=== PATIENT | female | born 1980 | race Caucasian/White ===

== ENCOUNTER → 2018-01-21 13:31 | Outpatient (REF) | payer BC, SELFPAY | LOC: LAB 13:31 | PROVIDERS: Visit Provider Physician Assistant | DX: N39.0 Urinary tract infection, site not specified (principal) | CPT/HCPCS: 87086 ==

== ENCOUNTER → 2018-07-16 14:43 | Outpatient (CLI) | payer BC, SELFPAY ==
[2018-07-16 16:26] LABS: Amphetamine/Metha Screen,Urine Positive ng/mL (<1000); Barbiturates Screen,Urine Negative ng/mL (<200); Benzodiazepines Screen,Urine Negative ng/mL (<200); Cannabinoid Screen,Urine Negative ng/mL (<50); Cocaine Screen,Urine Negative ng/mL (<300); Methadone Screen,Urine Negative ng/mL (<300); Opiate Screen,Urine Negative ng/mL (<300); Phencyclidine Screen,Urine Negative ng/mL (<25)
== END ==
PROVIDERS: Visit Provider Physician Assistant
DX: F90.9 Attention-deficit hyperactivity disorder, unspecified type (principal)
CPT/HCPCS: 80305

== ENCOUNTER → 2019-09-30 14:44 | Outpatient (CLI) | payer BC, SELFPAY ==
--- NOTE | 2019-09-30 14:50 | XR_ITS ---
PROCEDURE: XR ELBOW RT MIN 3V CLINICAL INDICATION: right elbow pain COMPARISON: No exams were available for comparison FINDINGS: No fracture or dislocation. No lytic or blastic change. There is normal mineralization. The joint spaces are well-preserved. No significant degenerative/arthritic changes. No erosive changes evident. Other findings:None. IMPRESSION: No acute findings. Dictated by: Tim Darby MD 09/30/2019 16:43 Electronically signed by Tim Darby MD in [place] 09/30/2019 16:43
== END ==
LOC: RAD 14:47
PROVIDERS: PCP Physician Assistant; Visit Provider Physician Assistant
DX: M25.521 Pain in right elbow (principal)
CPT/HCPCS: 73080

== ENCOUNTER → 2020-01-01 11:09 | Outpatient (CLI) | payer BC, SELFPAY ==
[2020-01-01 11:17] LABS: Adenovirus F 40/41, stool Not Detected (NotDetected); Astrovirus Not Detected (NotDetected); Campylobacter Not Detected (NotDetected); Clostridium Difficile A/B, PCR Not Detected (NotDetected); Cryptosporidium Not Detected (NotDetected); Cyclospora Cayetanesis Not Detected (NotDetected); Entamoeba histolytica Not Detected (NotDetected); Enteroaggregative E coli Not Detected (NotDetected); Enteropathogenic E coli Not Detected (NotDetected); Enterotoxigenic E coli Not Detected (NotDetected); Giardia lamblia Not Detected (NotDetected); Norovirus Not Detected (NotDetected); Plesimonas Shigalloides, PCR Not Detected (NotDetected); Rotavirus A Not Detected (NotDetected); Salmonella, PCR Not Detected (NotDetected); Sapovirus Not Detected (NotDetected); Shigella Enterovasive E coli Not Detected (NotDetected); Vibrio Cholerae Not Detected (NotDetected); Vibrio, PCR Not Detected (NotDetected); Yersinia Entercolitica, PCR Not Detected (NotDetected)
[2020-01-01 20:07] LABS: Shiga-like toxin E coli Detected (NotDetected)
== END ==
PROVIDERS: Visit Provider Physician Assistant
DX: R19.7 Diarrhea, unspecified (principal); B96.21 Shiga toxin-producing Escherichia coli [E. coli] [STEC] O157 as the cause of diseases classified elsewhere
CPT/HCPCS: 87507

== ENCOUNTER → 2020-04-04 17:46 | Outpatient (CLI) | payer BC, SELFPAY ==
[2020-04-04 18:45] LABS: Basophils # 0.2 K/mm3 (0-0.2); Basophils % 1.4 % (0.1-2.0); Eosinophils # 0.2 K/mm3 (0.0-0.4); Eosinophils % 1.2 % (0.1-12.0); Hematocrit 47.2 % (37.0-47.0); Hemoglobin 15.8 g/dL (12.2-16.2); Lymphocytes # 4.2 K/mm3 (0.7-4.5); Lymphocytes % 35.2 % (10-50); Mean Corpuscular HGB Conc 33.4 g/dL (31.8-35.4); Mean Corpuscular Hemoglobin 30.9 pg (27.0-31.2); Mean Corpuscular Volume 92.4 fl (81-99); Mean Platelet Volume 8.3 fl (7.4-10.4); Monocytes # 0.7 K/mm3 (0.1-1.0); Monocytes % 5.5 % (1.7-9.3); Neutrophils # 6.8 K/mm3 (1.8-7.8); Neutrophils % 56.7 % (37.0-80.0); Platelet Count 500 K/mm3 (142-424); Red Blood Count 5.11 M/mm3 (4.20-5.40); Red Cell Distribution Width 13.4 % (11.5-17.5)
[2020-04-04 18:47] LABS: Alanine Aminotransferase 19 U/L (12-78); Albumin Level 4.6 g/dl (3.5-5.0); Albumin/Globulin Ratio 1.6 (1.1-1.8); Alkaline Phosphatase 81 U/L (38-126); Anion Gap 13.4 mEq/L (5-15); Aspartate Amino Transferase 30 U/L (14-36); Bilirubin,Total 0.4 mg/dl (0.2-1.3); Blood Urea Nitrogen 7 mg/dl (7-17); Calcium 9.7 mg/dl (8.4-10.2); Carbon Dioxide 24 mmol/L (22.0-30.0); Chloride 103 mmol/L (98-107); Chol/HDL Ratio 3.2 (1-3.5); Cholesterol 199 mg/dl (140-200); Estimated Glomerular Filt Rate 94 ml/min (>60); GFR (African American) 114 ML/MIN (>60); Globulin 2.9 g/dL (1.3-3.2); Glucose 85 mg/dl (74-100); HDL Cholesterol 62 mg/dl (40-60); Potassium 4.4 mmoL/L (3.5-5.1); Sodium 136 mmol/L (136-145); Total Protein,Serum 7.5 g/dl (6.3-8.2); Triglycerides 90 mg/dl (30-150); VLDL Cholesterol 18 mg/dL (0-40)
[2020-04-04 18:58] LABS: Direct LDL Cholesterol 124.42 mg/dL (100-129)
[2020-04-04 19:03] LABS: Free T4 (Free Thyroxine) 1.53 ng/dl (0.78-2.19)
[2020-04-04 19:05] LABS: 25-OH Vitamin D, Total 37.8 ng/mL (30-100)
[2020-04-04 19:17] LABS: Thyroid Stimulating Hormone 3.09 uIU/mL (0.465-4.68)
== END ==
LOC: LAB 17:46 → LAB.DROPOF 04-05 08:45
PROVIDERS: Visit Provider Physician Assistant
DX: Z00.00 Encounter for general adult medical examination without abnormal findings (principal); F90.9 Attention-deficit hyperactivity disorder, unspecified type
CPT/HCPCS: 80053; 80061; 82306; 84439; 84443; 85025

== ENCOUNTER → 2020-09-09 14:22 | Outpatient (CLI) | payer BC, SELFPAY | LOC: RT 14:24 | PROVIDERS: PCP Physician Assistant; Visit Provider Physician Assistant | DX: R06.00 Dyspnea, unspecified (principal); R60.9 Edema, unspecified | CPT/HCPCS: 93306 ==

== ENCOUNTER → 2021-08-22 14:53 | Outpatient (CLI) | payer BC, SELFPAY ==
[2021-08-22 18:52] LABS: Amphetamine/Metha Screen,Urine Positive ng/ml (<1000)
[2021-08-22 18:53] LABS: Barbiturates Screen,Urine Negative ng/ml (<200); Benzodiazepines Screen,Urine Negative ng/ml (<200)
[2021-08-22 18:54] LABS: Cannabinoid Screen,Urine Positive ng/ml (<50)
[2021-08-22 18:55] LABS: Cocaine Screen,Urine Negative ng/ml (<300); Methadone Screen,Urine Negative ng/ml (<300)
[2021-08-22 18:56] LABS: Opiate Screen,Urine Negative ng/ml (<300)
[2021-08-22 18:57] LABS: Phencyclidine Screen,Urine Negative ng/ml (<25)
== END ==
PROVIDERS: PCP Physician Assistant; Visit Provider Physician Assistant
DX: Z79.899 Other long term (current) drug therapy (principal)
CPT/HCPCS: 80305

== ENCOUNTER → 2021-11-29 10:46 | Outpatient (CLI) | payer BC, SELFPAY ==
--- NOTE | 2021-11-29 11:10 | US_ITS ---
FINAL REPORT CLINICAL HISTORY: menorrhagia, abnormal uterine bleeding FINDINGS: Transvaginal sonographic images of the pelvis were obtained. The uterus measures 7.5 x 4.4 x 5.0 cm. The endometrium measures 14 mm, within the upper limits of normal in size. There is a small amount of pelvic free fluid. The right ovary measures 3.1 x 2.2 x 1.9 cm. The left ovary measures 4.0 x 1.4 x 2.3 cm. There are small cysts or follicles in both ovaries. IMPRESSION: Borderline thickened endometrium. Small amount of free fluid, may be physiologic or reactive. Reviewed, Interpreted and Dictated by Andrew Connolly III, MD Transcribed by Sahra Graff Authenticated and [facility]
== END ==
PROVIDERS: PCP Physician Assistant; Visit Provider Obstetrics & Gynecology
DX: R09.89 Other specified symptoms and signs involving the circulatory and respiratory systems (principal); N92.0 Excessive and frequent menstruation with regular cycle; N93.9 Abnormal uterine and vaginal bleeding, unspecified
CPT/HCPCS: 36415; 76830; 84443

== ENCOUNTER → 2022-01-13 12:15 | Outpatient (CLI) | payer BC, SELFPAY ==
[2022-01-13 12:45] LABS: Basophils # 0.2 K/mm3 (0-0.2); Basophils % 1.4 % (0.1-2.0); Eosinophils # 0.2 K/mm3 (0.0-0.4); Eosinophils % 1.3 % (0.1-12.0); Hematocrit 41.4 % (37.0-47.0); Hemoglobin 13.7 g/dL (12.2-16.2); Lymphocytes # 4.8 K/mm3 (0.7-4.5); Lymphocytes % 42.4 % (10-50); Mean Corpuscular HGB Conc 33.1 g/dL (31.8-35.4); Mean Corpuscular Hemoglobin 30.2 pg (27.0-31.2); Mean Corpuscular Volume 91.1 fl (81-99); Monocytes # 0.5 K/mm3 (0.1-1.0); Monocytes % 4.5 % (1.7-9.3); Neutrophils # 5.7 K/mm3 (1.8-7.8); Neutrophils % 50.3 % (37.0-80.0); Platelet Count 471 K/mm3 (142-424); Red Blood Count 4.54 M/mm3 (4.20-5.40); Red Cell Distribution Width 13.4 % (11.5-17.5); White Blood Count 11.4 K/mm3 (4.8-10.8)
[2022-01-13 12:58] LABS: Chloride 103 mmol/L (98-107); Potassium 3.5 mmoL/L (3.5-5.1); Sodium 139 mmol/L (136-145)
[2022-01-13 13:01] LABS: Alanine Aminotransferase 14 U/L (12-78); Albumin Level 4.2 g/dl (3.5-5.0); Albumin/Globulin Ratio 1.7 (1.1-1.8); Alkaline Phosphatase 74 U/L (38-126); Anion Gap 12.5 mEq/L (5-15); Aspartate Amino Transferase 25 U/L (14-36); Blood Urea Nitrogen 6 mg/dl (7-17); Calcium 8.7 mg/dl (8.4-10.2); Carbon Dioxide 27 mmol/L (22.0-30.0); Estimated Glomerular Filt Rate 111 ml/min (>60); GFR (African American) 135 ML/MIN (>60); Globulin 2.5 g/dL (1.3-3.2); Glucose 82 mg/dl (74-100); Total Protein,Serum 6.7 g/dl (6.3-8.2)
[2022-01-13 13:02] LABS: Bilirubin,Total 0.1 mg/dl (0.2-1.3)
[2022-01-13 13:23] LABS: HCG,Quantitative < 2 mIU/ml (0-5.42)
== END ==
PROVIDERS: PCP Physician Assistant; Visit Provider Obstetrics & Gynecology
DX: N93.9 Abnormal uterine and vaginal bleeding, unspecified (principal)
CPT/HCPCS: 36415; 80053; 84702; 85025

== ENCOUNTER 2022-01-15 06:00 | Day surgery (SDC) | payer BC, SELFPAY ==
[2022-01-15 06:27] VITALS: BP 128/72; PULSE 75; RESP 18; TEMP 36.2; O2SAT 100; BMI 31.7
--- NOTE | 2022-01-15 07:07 | P.PN_ITS ---
PFSH PFS Medical History Abnormal uterine bleeding Anxiety Attention Deficit Hyperactivity Disorder (ADHD) Function kidney decreased Menorrhagia Tobacco use Surgical History History of kidney surgery Family History Other No significant family history Social History Smoking Status: Current every day smoker tobacco type: cigarettes packs per day: 1 second hand exposure: Yes alcohol intake: never substance use type: denies use current occupational status: employed Travel in the last 8 weeks: Inside the [place] [facility] Anesthesia Checklist Patient Identification Patient Identification: Arm Band and Verbal (Name & ) Structural Data Admitted From: Home Planned Operative Procedure/s: Hyst/D & C/ Novasure Consent for Planned Operative Procedure(s) Verified: Yes NPO Status Verified Time NPO: 00:00 Chart Verification Results Verified: HCG Additional verifications Anesthesia Reactions: No Hx Blood Transfusions: No Blood Transfusion Reaction: No Airway Assessment C-Spine Mobility Assessed: Yes TMJ Mobility Assessed: Yes Dentition: Good Dentition Neurological Assessment Level of Consciousness: Awake Hx Seizures: Yes (Childhood) Numbness or tingling in extremities: No Anesthesia Plan Anesthesia Risk discussed: Yes Anesthesia Plan: Verified ASA Class: II Anesthesia Type: MAC
[2022-01-15 08:04] VITALS: BP 122/72; PULSE 88; RESP 17; TEMP 36.6; O2SAT 97
--- NOTE | 2022-01-15 08:11 | P.OP_ITS ---
Date of procedure: 01/15/22 Pre-op Diagnosis:: 1. Menorrhagia 2. Abnormal uterine bleeding Post-op Diagnosis:: 1. Menorrhagia 2. Abnormal uterine bleeding Procedure performed:: 1. Hysteroscopy, Dilation and curettage 2. Novasure endometrial ablation Surgeon:: Eugenia Long DO Safe And Vault Installer(s):: N/a BRICK SORTER:: Leonides Howard Anesthesia: MAC Estimated blood loss (mL): 5 Clinical Note:: Ms Kay Rodrigues is a 41 yo P2002 who presents for scheduled surgery. She complains of abnormal uterine bleeding. FDLMP 01/10/22. Periods are regular, monthly. Flow lasts about 7 days. She states the first 3-4 days are very heavy with clots. History of x 2. Her has had a vasectomy. She is a current tobacco user. She has tried Depo Provera, combined OCPs and Mirena IUD in the past. She did not like the IUD and admits it did not change her bleeding profile. TSH 2.20 on 11/29/21. Pelvic ultrasound 11/29/21 was within normal limits. Operative findings:: On bimanual exam, uterus was midposition and normal size and shape. No adnexal masses palpated. Cervix appeared grossly normal. Moderate amount of fluffy endometrial tissue present. No masses or polyps noted. Bilateral tubal ostia easily visualized. Operative note:: Risks, benefits and alternatives were discussed with the patient. Risks include but are not limited to bleeding, infection, uterine perforation and VTE. Patient voiced understanding and agreed to proceed. She was wheeled back to the operating room and placed under general anesthesia without difficulty. She was placed in dorsal lithotomy position and prepped and draped in the normal sterile fashion. A bimanual exam was performed. A weighted Auvard was placed in the vaginal vault. Single tooth tenaculum was placed on anterior lip of the cervix. Uterus sounded to 9. Sequential Jonathan dilators were used to dilate the cervical os. Hysteroscope was tested inserted through the cervix without difficulty. Endometrial cavity was evaluated. See findings above. Pictures were taken. Hysteroscope was removed. Medium size sharp curette was inserted through the cervix into the uterine cavity. The endometrial cavity was curetted with a systemic [id number] movement of the curette so that all possible endometrium was sampled. Endometrial curettings will be sent to pathology for review. Novasure sure sound was used to obtain uterine length. Uterus measured 4.5 cm in length and 4.5 cm in cavity width. Novasure deviced was inserted and ablation was performed per protocol at a power of 111 w for 120 seconds. Novasure device was removed. Hysteroscope was reinserted and cavity revealed adequate burn and no uterine perforation. Hysteroscope was removed. Instruments were removed from the vagina. Tenaculum site was noted to be hemostatic. Straight catheter was used to drain the bladder. Patient was awaken from anesthesia without difficulty. She was transported to recovery room in stable condition. Patient will be discharged home when awake and ambulating. She was given postop instructions as well as instructions to follow-up in the office in 2 weeks at which time pathology will be reviewed. Condition: stable Disposition: same day Specimens:: 1. Endometrial curettings Complications:: None
[2022-01-15 08:14] VITALS: BP 125/75; PULSE 87; RESP 18; O2SAT 97
[2022-01-15 08:24] VITALS: BP 121/78; PULSE 84; RESP 18; O2SAT 98
[2022-01-15 08:34] VITALS: BP 143/93; PULSE 74; RESP 18; O2SAT 95
== END 2022-01-15 08:37 | disposition home or self-care (01) ==
PROVIDERS: PCP Physician Assistant; Visit Provider Obstetrics & Gynecology
PROC: (CPT 58563; principal; 2022-01-15 07:30)
DX: N92.0 Excessive and frequent menstruation with regular cycle (principal); N93.9 Abnormal uterine and vaginal bleeding, unspecified; Z72.0 Tobacco use; Z79.899 Other long term (current) drug therapy
CPT/HCPCS: 58563; 88305

== ENCOUNTER 2022-05-13 16:39 | Emergency (ER) | payer BC, SELFPAY ==
[2022-05-13 16:40] VITALS: BP 118/73; PULSE 110; RESP 17; TEMP 36.4; O2SAT 100; BMI 32.4
--- NOTE | 2022-05-13 16:55 | EXP.UTC ---
Discharge Plan Disposition Patient Disposition: Home, Self-Care Condition: Good Prescriptions Prescriptions: New ondansetron 4 mg Tablet,Disintegrating 4 mg PO Q8H PRN (Reason: Nausea) Qty: 12 0RF No Action cyclobenzaprine 10 mg tablet 10 mg PO Q8H PRN (Reason: muscle spasm) Qty: 90 5RF fluticasone propionate [Flonase Allergy Relief] 50 mcg/actuation spray,suspension 1 spray intranasal BID Qty: 16 3RF Rx Instructions: administer into each nostril hydrochlorothiazide 12.5 mg tablet 12.5 mg PO DAILY Qty: 30 2RF Mydayis 50 mg capsule, ER triphasic 24 hr 50 mg PO DAILY Qty: 30 0RF memantine [Namenda XR] 7 mg capsule,sprinkle,ER 24hr 7 mg PO DAILY Referrals Follow up/Referrals: Lamar Moffett PA [Primary Care Provider] - See instructions Activity Restrictions/Add. Instructions Additional Instructions/Restrictions: Drink plenty of fluids. Take tylenol or ibuprofen for pain or fever. Take the medications as directed. Follow up with your regular doctor. GO TO THE ER FOR ANY WORSENING SYMPTOMS Clinical Impressions Clinical Impression: Gastroenteritis, Acute viral syndrome Stand Alone Forms Stand Alone Forms: Work/School Release Instructions Patient Instructions: DI for Viral Gastroenteritis -- Adult Discharge ED Provider: Eliazar Kelly [facility] General Stated complaint: stomach pain, chills, vomiting, weakness Mode of Arrival: Ambulatory Limitations: No Limitations Time Seen by Provider: 05/13/22 16:55 Description of Symptoms (Recalled from Triage Doc. by RN): PT C/O CHILLS, VOMITING, BODYACHES AND FATIGUE. History of Present Illness Provider Complaint: She states that for the past 1 day she had nausea and vomiting. She has not had diarrhea, but she has a history of constipation. She has had chills, but no documented fever. Related Data Home Medications Medication Instructions Recorded Confirmed memantine 7 mg capsule 7 mg PO DAILY . 01/15/22 05/07/22 sprinkle,extended release 24hr (Namenda XR) Previous Rx's Medication Instructions Recorded cyclobenzaprine 10 mg tablet 10 mg PO Q8H PRN muscle spasm #90 01/04/22 tabs dextroamphetamine-amphetamine ER 50 mg PO DAILY . #30 ea 05/07/22 50 mg capsule,3 bead,ext release 24hr (Mydayis) fluticasone propionate 50 1 spray intranasal BID allergies 05/07/22 mcg/actuation nasal #16 grams spray,suspension (Flonase Allergy Relief) hydrochlorothiazide 12.5 mg tablet 12.5 mg PO DAILY #30 tabs 05/07/22 ondansetron 4 mg disintegrating 4 mg PO Q8H PRN Nausea #12 tabs 05/13/22 tablet Allergies Allergy/AdvReac Type Severity Reaction Status Date / Time No Known Allergies Allergy Verified 05/13/22 17:21 [facility] Disclaimer: The information contained in this section may have been updated after the patient was seen, as this information can be updated by other users. Medical History Abnormal uterine bleeding Anxiety Attention Deficit Hyperactivity Disorder (ADHD) Function kidney decreased Menorrhagia Tobacco use Surgical History History of endometrial ablation History of hysteroscopy History of kidney surgery S/P dilation and curettage Family History Other No significant family history Social History Smoking Status: Current every day smoker tobacco type: cigarettes packs per day: 1 second hand exposure: Yes alcohol intake: never substance use type: denies use current occupational status: employed Travel in the last 8 weeks: Inside the [place] ROS Obtained: Yes All systems reviewed & no additional complaints except as documented Constitutional Constitutional: Denies chills and Denies fever(s) Eyes Eyes: Denies eye discharge ENT Ears, Nose, Mouth, and Throat: Denies dizziness, 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
[2022-05-13 17:10] VITALS: BP 121/76; PULSE 102; RESP 20; TEMP 37.1; O2SAT 99; BMI 32.4
[2022-05-13 17:22] LABS: UTC Strep Screen (Rapid) Negative (Negative)
[2022-05-13 17:23] LABS: UTC Influenza A Antigen Negative (Negative); UTC Influenza B Antigen Negative (Negative)
[2022-05-13 18:12] VITALS: BP 121/76; PULSE 102; RESP 20; TEMP 37.1; O2SAT 99
== END 2022-05-13 18:11 | disposition home or self-care (01) ==
LOC: ER 16:46 → UTC 16:46
PROVIDERS: Emergency Provider Nurse Practitioner Family; PCP Physician Assistant
DX: K52.9 Noninfective gastroenteritis and colitis, unspecified (principal); B34.9 Viral infection, unspecified
CPT/HCPCS: 87804; 87880; 99212; 99213; G0463

== ENCOUNTER → 2022-06-28 10:30 | Outpatient (CLI) | payer BC, SELFPAY | PROVIDERS: PCP Physician Assistant; Visit Provider Physician Assistant | DX: R35.0 Frequency of micturition (principal); B96.29 Other Escherichia coli [E. coli] as the cause of diseases classified elsewhere | CPT/HCPCS: 87086; 87088; 87186 ==

== ENCOUNTER 2023-04-09 11:34 | Outpatient (CLI) | payer BC, SELFPAY ==
[2023-04-09 13:35] LABS: Amphetamine/Metha Screen,Urine Positive ng/ml (<1000); Barbiturates Screen,Urine Negative ng/ml (<200); Benzodiazepines Screen,Urine Negative ng/ml (<200); Cannabinoid Screen,Urine Negative ng/ml (<50); Cocaine Screen,Urine Negative ng/ml (<300); Methadone Screen,Urine Negative ng/ml (<300); Opiate Screen,Urine Negative ng/ml (<300); Phencyclidine Screen,Urine Negative ng/ml (<25)
== END 2023-04-09 23:59 ==
LOC: LAB.DROPOF 11:35
PROVIDERS: PCP Physician Assistant; Visit Provider Physician Assistant
DX: F90.9 Attention-deficit hyperactivity disorder, unspecified type (principal)
CPT/HCPCS: 80307

== ENCOUNTER 2023-06-03 09:24 | Outpatient (CLI) | payer OTHER, SELFPAY ==
[2023-06-03 10:19] LABS: Basophils # 0.2 K/mm3 (0-0.2); Basophils % 1.7 % (0.1-2.0); Eosinophils # 0.2 K/mm3 (0.0-0.4); Eosinophils % 1.6 % (0.1-12.0); Hematocrit 44.5 % (37.0-47.0); Hemoglobin 14.8 g/dL (12.2-16.2); Lymphocytes % 41.3 % (10-50); Mean Corpuscular HGB Conc 33.4 g/dL (31.8-35.4); Mean Corpuscular Hemoglobin 31.3 pg (27.0-31.2); Mean Corpuscular Volume 93.7 fl (81-99); Mean Platelet Volume 7.5 fl (7.4-10.4); Monocytes # 0.6 K/mm3 (0.1-1.0); Monocytes % 5.7 % (1.7-9.3); Neutrophils # 4.8 K/mm3 (1.8-7.8); Neutrophils % 49.7 % (37.0-80.0); Platelet Count 407 K/mm3 (142-424); Red Blood Count 4.75 M/mm3 (4.20-5.40); Red Cell Distribution Width 13.2 % (11.5-17.5); White Blood Count 9.7 K/mm3 (4.8-10.8)
[2023-06-03 10:33] LABS: Alanine Aminotransferase 17 U/L (12-78); Albumin Level 4.2 g/dl (3.5-5.0); Albumin/Globulin Ratio 1.9 (1.1-1.8); Alkaline Phosphatase 70 U/L (38-126); Anion Gap 8.7 mEq/L (5-15); Aspartate Amino Transferase 25 U/L (14-36); Bilirubin,Total 0.3 mg/dl (0.2-1.3); Blood Urea Nitrogen 9 mg/dl (7-17); Carbon Dioxide 27 mmol/L (22.0-30.0); Chloride 108 mmol/L (98-107); Chol/HDL Ratio 3.1 (1-3.5); Cholesterol 148 mg/dl (140-200); Estimated Glomerular Filt Rate 93 ml/min (>60); GFR (African American) 112 ML/MIN (>60); Globulin 2.2 g/dL (1.3-3.2); Glucose 87 mg/dl (74-100); HDL Cholesterol 47 mg/dl (40-60); Potassium 3.7 mmoL/L (3.5-5.1); Sodium 140 mmol/L (136-145); Total Protein,Serum 6.4 g/dl (6.3-8.2); Triglycerides 117 mg/dl (30-150); VLDL Cholesterol 23 mg/dL (0-40)
[2023-06-03 10:43] LABS: Direct LDL Cholesterol 77.11 mg/dL (100-129)
[2023-06-03 10:44] LABS: Iron 70 ug/dL (37-170)
[2023-06-03 10:48] LABS: 25-OH Vitamin D, Total 48.7 ng/mL (30-100)
[2023-06-03 11:01] LABS: Total Iron Binding Capacity 357 ug/dL (265-497)
[2023-06-03 11:03] LABS: Thyroid Stimulating Hormone 2.67 uIU/mL (0.465-4.68)
[2023-06-03 11:21] LABS: Ferritin 43.8 ng/ml (6.24-137)
== END 2023-06-03 23:59 ==
LOC: LAB 09:27
PROVIDERS: PCP Physician Assistant; Visit Provider Physician Assistant
DX: R51.9 Headache, unspecified (principal); F90.0 Attention-deficit hyperactivity disorder, predominantly inattentive type; E66.9 Obesity, unspecified; Z68.29 Body mass index [BMI] 29.0-29.9, adult; F17.210 Nicotine dependence, cigarettes, uncomplicated; Z79.899 Other long term (current) drug therapy
CPT/HCPCS: 36415; 80053; 80061; 82306; 82728; 83540; 83550; 84443; 85025

== ENCOUNTER 2024-12-27 17:07 | Emergency (ER) | payer BC, SELFPAY ==
[2024-12-27] VITALS (12 sets, daily range): BP systolic 116–149; BP diastolic 74–94; PULSE 71–97; RESP 14–24; TEMP 36.9–37.2; O2SAT 96–100; BMI 33.5
--- NOTE | 2024-12-27 17:18 | ECG_ITS ---
APPROVED REPORT Exam: Resting ECG HR:80 bpm ECG Measurements Heart Rate 80 AXES UT 153 P 75 QRSd 94 QRS 80 QT 387 T 78 QTc 423 Conclusion SINUS RHYTHM WITH OCCASIONAL VENTRICULAR PREMATURE COMPLEXES BORDERLINE ECG UNCONFIRMED REPORT Electronically signed by : ANGIE PUCKETT, 12/28/2024 23:03:02
--- NOTE | 2024-12-27 17:18 | CT_ITS ---
PROCEDURE INFORMATION: Exam: CT Head Without Contrast Exam date and time: 12/27/2024 7:12 PM Age: 44 years old Clinical indication: Other: Optic nerve edema, headache, tingling feet TECHNIQUE: Imaging protocol: Computed tomography of the head without contrast. Radiation optimization: All CT scans at this facility use at least one of these dose optimization techniques: automated exposure control; mA and/or kV adjustment per patient size (includes targeted exams where dose is matched to clinical indication); or iterative reconstruction. COMPARISON: No relevant prior studies available. FINDINGS: Brain: No extra-axial fluid collections, midline shift, brain herniation, intracranial hemorrhage, or mass effect. Cerebral ventricles: The ventricular system is normal in size and distribution. Paranasal sinuses: Paranasal sinuses are clear. Mastoid air cells: The mastoid sinuses are clear. Orbital cavities: Punctate calcifications in the orbits at the level of the optic nerve insertion, nonspecific. Orbits are otherwise unremarkable. Bones: No acute skeletal abnormality or aggressive osseous lesion. Soft tissues: No acute soft tissue findings. IMPRESSION: 1. No acute intracranial pathology. 2. Punctate calcifications in the orbits at the level of the optic nerve insertion, nonspecific.
--- OUTSIDE RECORDS SUMMARY | 2024-12-27 17:21 | XMS_ITS | Patient Health Record ---
Author Organization [facility] Address [address] [place] [address] Care Team Providers Care Drapery And Upholstery Measurer Name Role Phone Anjelica Nash Unavailable [phone] Reason For Referral No Information Problems Problem Type SNOMED Code ICD Code Onset Dates Problem Status W/U Status Risk Notes Problem Abnormal uterine bleeding (86708628188 100) Abnormal bleeding in menstrual cycle (N93.9) 9 Active confirmed Vaginal spotting Plan Of Treatment No Information Medical (General) History Medical History History ICD Code Anxiety Fibercystic breasts LEXAPRO 10 MG ORAL TABLET, ORAL MYDAYIS 25 MG ORAL CAPSULE EXTENDED RELE ASE 24 HOUR, ORAL Surgical History Surgery Date(Month/Year) Kidney
--- OUTSIDE RECORDS SUMMARY | 2024-12-27 17:21 | XMS_ITS | Clinical Summary ---
Author Organization [facility] Address [address] [place] [address] Care Team Providers Care Building And Construction Manager Name Role Phone Lamar Moffett Primary Care Provider [phone] Allergies No known active allergies Medications Amphet-Dextroamphe t 3-Bead ER (MYDAYIS) 25 MG capsule sustained-release 24 hr Take 1 capsule by mouth Daily. Active HYDROcodone-acetam inophen (NORCO) 5-325 MG per tabletIndications: Acute abdominal pain,Colitis Take 1-2 tablets by mouth Every 6 (Six) Hours As Needed for Severe Pain . 12 tablet 12/28/19 20 Active ondansetron ODT (ZOFRAN-ODT) [address] 1 tablet on the tongue Every 6 (Six) Hours As Needed for Nausea or Vomiting. 12 tablet 12/28/19 20 Active ciprofloxacin (CIPRO) 500 MG tablet Take 1 tablet by mouth Every 12 (Twelve) Hours. 20 tablet 12/28/19 20 Active metroNIDAZOLE (FLAGYL) 500 MG tablet Take 1 tablet by mouth 3 (Three) Times a Day. 30 tablet 12/28/19 20 Active escitalopram (LEXAPRO) 10 MG tablet Take 1 tablet by mouth Daily. 12/22/19 20 Active cyclobenzaprine (FLEXERIL) 10 MG tablet Take 10 mg by mouth 3 (Three) Times a Day As Needed. for muscle spams 02/03/20 20 Active loratadine (CLARITIN) 10 MG tablet Take 1 tablet by mouth Daily. 11/24/19 20 Active colestipol (COLESTID) 1 g tablet Take 2 tablets by mouth Daily. Do not take within 2 hours of other medications 60 tablet 5 02/11/20 20 Active dvrlrx-gjcxjhmqb-i agnesium sulfates (Suprep Bowel Prep Kit) 17.5-3.13-1.6 GM/177ML solution oral solution Take 2 bottles by mouth Take As Directed. Do Not Eat The Day Before Your Procedure. Call [phone] for questions. 354 mL 03/02/20 20 Active Active Problems No known active problems Social History Tobacco Use Types Packs/Day Years Used Date Smoking Tobacco: Every Day Cigarettes Smokeless Tobacco: Never Tobacco Cessation:Ready to Q uit: No; Counseling Given: No Alcohol Use Standard Drinks/Week Comments No 0 (1 standard drink = 0.6 oz pur e alcohol) AUDIT-C Answer Date Recorded Frequency of Alcohol Consumption Never 08/10/2018 Average Number of Drinks Not on file Frequency of Binge Drinking Not on file 07/30 Abuse Screen Answer Date Recorded Unsafe at Home or Work/School Not on file Feels Threatened by Someone? Not on file 03/2023 Does Anyone Keep You from Co ntacting Others or Doint Things Outside the Home? Not on file 01/10/2023 Physical Sign of Abuse Present Not on file 1 Housing Stability Answer Date Recorded Current Living Arrangements Not on file 12/30 Potentially Unsafe Housing Conditions Not on ginette e 01/10/2023 Family and Community Support Answer Damián e Recorded Help with Day-to-Day Activities Not on file 01/10/2023 Lonely or Isolated Not on file 01/10/2023 Employment Answer Date Recorded Do you want help finding or keeping work or a daniele b? Not on file 01/10/2023 Disabilities Answer Date Recorded Concentrating, Remembering, or Making Decisions Difficulty Not on file 01/10/2023 Doing Errands Independently Difficulty Not on fi le 01/10/2023 Education Answer Date Recorded Help with school or training? Not on file Preferred Language Not on file 01/10/2023 Comments No Sex and Gender Information Value Date Recorded Sex Assigned at Not on file Legal Sex Female 8:42 PM EDT Gender Identity Not on file Sexual Orientation Not on file Last Filed Vital Signs Vital Sign Reading Time Taken Comments Blood Pressure 146/98 02/11/2020 10:27 AM EST Pulse 105 02/11/2020 10:27 AM EST Temperature 36.3 C (97.3 F) 02/11/2020 10:27 AM EST Respiratory Rate 16 12/28/2019 7:29 AM EDT Oxygen Saturation 95% 12/28/2019 12:30 PM EDT Inhaled Oxygen Concentration - - Weight 83.2 kg (183 lb 6.4 oz) 02/11/2020 10:27 AM EST Height 162.6 cm (5' 4.02 ) 02/11/2020 10:[address] Body Mass Index 31.46 02/11/2020 10:27 AM EST Plan of Treatment Health Maintenance Due Date Last Done Comments Annual Gynecologic Pelvic an d Breast Exam 1980 ANNUAL PHYSICAL 08/12/2018 HEPATITIS C SCREENING 08/12/2018 MAMMOGRAM 2022 INFLUENZA VACCINE 10/30/2024 01/13/2018 TDAP/TD VACCINES (2 - Td or Tdap) 01/03/2027 017 Pneumococcal Vaccine 0-49 Aged Out No longer eligible based on patient's age to complete this topic Insurance Member Subscriber Plan / Payer (Ef fective 2018-Present) Name:Kay Harp Relation to Subscriber:Spouse Name:NITHIN HARP Date of :1982 Address: [address] [place] [address] Payer ID:[id number] (NAIC) Type:Not on file Address: [address] [place] [id number] Care Teams Building And Construction Manager Relationship Specialty Start Date End Date Lamar Moffett PA PCP - General Physician Anode Worker 08/10/18
--- OUTSIDE RECORDS SUMMARY | 2024-12-27 17:21 | XMS_ITS | Data Portability ---
Author Organization [facility] ALEISHA Quach PEN ARGYL CLOSED Address [address] [facility] [address] [place] [address] Care Team Providers Care Rubbing Bed Operator Name Role Phone OLIVIA MADSEN Primary Care Provider Assessment No assessment recorded. Plan of Treatment Reminders Order Date Submit Date Provider Last Modified By Organization Details Last Modified Time Details Appointments None recorded. Lab urinalysis panel, auto 2022 023 [facility] Urology [facility], [address] [place] [address], [place], [address], 3 15:16:10 urinalysis panel, auto 2021 022 [facility], [address] [place] [address], [place], [address], 2 18:46:38 urinalysis microscopic panel, automated 2020 021 [facility], [address] [place] [address], [place], [address], 1 14:20:03 urinalysis microscopic panel, automated 2019 020 [facility], [address] [place] [address], [address], 0 09:42:29 culture, urine 2019 020 [facility], [address] [place] [address] [place], [address], 0 13:30:14 urinalysis panel, auto 2018 019 Cu/Lc U[facility] [address], [address] [facility], [place], [address], 9 10:40:03 Referral None recorded. Procedures None recorded. Surgeries None recorded. Imaging XR, abdomen, 1 view 2020 021 [email or web address] [facility] Radiology [facility], [address] [facility], [place], [address], 1 14:47:39 Medication Orders None recorded. Patient TargetsNo targets recorded. Patient Instructions Encounter Date Encounter Id Patient Instructions Last Modified By Organization Details Last Modified Time 08/05/2018 [id number] Now feel that du e to hematuria and continued flank pain we should proceed with cysto B RPGs eval. Renal u/s with single small stone R kidney and creatinine normal both last fall. Not available 08/05/2018 10:39:49 01/13/2020 [id number] We will send uri ne specimen for culture and sensitivity and will then subsequently call in appropriate antibx. - should sx escalate at all then pt to call to initiate antibx sooner. she does have some intermittent mild chronic right flank pain which could be due to her atrophic kidney. She describes a somewhat positional and movement related nature to this pain as well however. Not available 01/13/2020 09:41:14 12/29/2020 [id number] KUB negative and UA unremarkable I believe her pain is most likely related to musculoskeletal source and she was advised accordingly. We will send her now for renal ultrasound as an interval assessment of her known history of reflux and right renal atrophy and use this as a baseline study. I will see her yearly Not available 12/29/2020 14:20:02 01/02/2022 [id number] Renal ultrasound reviewed showing mild right renal atrophy and a 6 mm stone on the right and 3 mL on left She seems to be fairly stable-no intervention required at this point Return in 1 year with KUB and renal ultrasound Not available 01/04/2022 18:46:37 02/14/2023 [id number] She will remain off of suppressive antibiotics Continue regular follow-up and serum studies of renal function with PCP Return 1 year with KUB, next renal ultrasound in 2 years Not available 02/14/2023 14:07:42 Reason for Referral None Reported. Results Created Date Observation Date Name Description Value Unit Range Abnormal Flag Note LastModifiedBy Organization Detail LastModifiedTime 12/30/19 21 12/29/2020 urina lysis micro scopi c panel , autom ated Unknown Analyte Clean Catch Not Available Cu/Lc Urolo gy [facility] [address] [facility], [place], [address], 12/29/2020 14:00:23 12/30/1912/29/2020 urina lysis micro scopi c panel , autom ated Unknown Analyte Yellow Not Available [facility] [address] [place], [address], 12/29/2020 14:00:23 12/30/1912/29/2020 urina lysis micro scopi c panel , autom ated Unknown Analyte Clear Not Available [facility] [address] [place], [address], 12/29/2020 14:00:23 12/30/19 21 12/29/2020 urina lysis micro scopi c panel , autom ated Unknown Analyte 1.020 Not Available [facility] [address] [place], [address], 12/29/2020 14:00:23 12/30/1912/29/2020 urina lysis micro scopi c panel , autom ated Unknown Analyte 6.0 Not Available [facility] [address] [place], [address], 12/29/2020 14:00:23 12/30/1912/29/2020 urina lysis micro scopi c panel , autom ated Unknown Analyte 75 Delilah/ul (+) Not Available Cu/Lc Urolo [facility] [address] [facility], [place], [address], 12/29/2020 14:00:23 12/30/19 21 12/29/2020 urina lysis micro scopi c panel , autom ated Unknown Analyte Negati ve Not Available Cu[facility]Lc Urolo [facility] [address] [facility], [place], [address], 12/29/2020 14:00:23 12/30/19 21 12/29/2020 urina lysis micro scopi c panel , autom ated Unknown Analyte 30 mg/dl (+) Not Available Cu[facility]Lc Urolo [facility] [address] [place], [address], 12/29/2020 14:00:23 12/30/19 21 12/29/2020 urina lysis micro scopi c panel , autom ated Unknown Analyte Normal Not Available [facility] [address] [facility], [place], [address], 12/29/2020 14:00:23 12/30/19 21 12/29/2020 urina lysis micro scopi c panel , autom ated Unknown Analyte 15 mg/dl (Sm) Not Available [facility]Lc Urolo [facility] [address] [facility], [place], [address], 12/29/2020 14:00:23 12/30/19 21 12/29/2020 urina lysis micro scopi c panel , autom ated Unknown Analyte 1 mg/dl Not Available [facility]c Urol[facility] [address] [place], [address], 12/29/2020 14:00:23 12/30/19 21 12/29/2020 urina lysis micro scopi c panel , autom ated Unknown Analyte 1 mg/dl (+) Not Available Cu[facility]Lc Urolo [facility] [address] [facility], [place], [address], 12/29/2020 14:00:23 12/30/19 21 12/29/2020 urina lysis micro scopi c panel , autom ated Unknown Analyte 250 Bj/ul Not Available Cu[facility]Lc Urolo [facility] [address] [facility], [place], [address], 12/29/2020 14:00:23 12/30/19 21 12/29/2020 urina lysis micro scopi c panel , autom ated Unknown Analyte AUTO Not Available [facility] [address] [facility], [place], [address], 12/29/2020 14:00:23 12/30/19 21 12/29/2020 urina lysis micro scopi c panel , autom ated Unknown Analyte 0-5 Not Available [facility] [address] [facility], [place], [address], 12/29/2020 14:00:23 12/30/19 21 12/29/2020 urina lysis micro scopi c panel , autom ated Unknown Analyte 6-10 Not Available [facility] [address] [place], [address], 12/29/2020 14:00:23 12/30/1912/29/2020 urina lysis micro scopi c panel , autom ated Unknown Analyte Occ Not Available [facility] [address] [place], [address], 12/29/2020 14:00:23 12/30/19 21 12/29/2020 urina lysis micro scopi c panel , autom ated Unknown Analyte None Seen Not Available [facility] Urolo [facility] [address] [place], [address], 12/29/2020 14:00:23 08/06/1908/05/2018 urina lysis panel , auto Unknown Analyte Clean Catch Not Available Cu[facility]Lc Urol[facility] [address] [facility], [place], [address], 08/05/2018 10:10:59 08/06/1908/05/2018 urina lysis panel , auto Unknown Analyte Yellow Not Available [facility] [address] [facility], [place], [address], 08/05/2018 10:10:59 08/06/1908/05/2018 urina lysis panel , auto Unknown Analyte Slight ly Hazy Not Available [facility]rol[facility] [address] [place], [address], 08/05/2018 10:10:59 08/06/1908/05/2018 urina lysis panel , auto Unknown Analyte 1.015 Not Available [facility] [address] [place], [address], 08/05/2018 10:10:59 08/06/19 19 08/05/2018 urina lysis panel , auto Unknown Analyte 6.0 Not Available [facility] [address] [place], [address], 08/05/2018 10:10:59 08/06/1908/05/2018 urina lysis panel , auto Unknown Analyte 25 Delilah/ul Trace Not Available [facility]rol[facility] [address] [place], [address], 08/05/2018 10:10:59 08/06/1908/05/2018 urina lysis panel , auto Unknown Analyte Negati ve Not Available [facility]rol[facility] [address] [place], [address], 08/05/2018 10:10:59 08/06/19 19 08/05/2018 urina lysis panel , auto Unknown Analyte Negati ve Not Available [facility]Lc Urol[facility] [address] [facility], [place], [address], 08/05/2018 10:10:59 08/06/19 19 08/05/2018 urina lysis panel , auto Unknown Analyte Normal Not Available [facility] [address] [facility], [place], [address], 08/05/2018 10:10:59 08/06/1908/05/2018 urina lysis panel , auto Unknown Analyte Negati ve Not Available Cu[facility]Lc Urol[facility] [address] [facility], [place], [address], 08/05/2018 10:10:59 08/06/1908/05/2018 urina lysis panel , auto Unknown Analyte Normal Not Available [facility] [address] [facility], [place], [address], 08/05/2018 10:10:59 08/06/19 19 08/05/2018 urina lysis panel , auto Unknown Analyte Negati ve Not Available [facility]rol[facility] [address] [place], [address], 08/05/2018 10:10:59 08/06/1908/05/2018 urina lysis panel , auto Unknown Analyte 250 Bj/ul Not Available [facility]Lc Urol[facility] [address] [facility], [place], [address], 08/05/2018 10:10:59 08/06/1908/05/2018 urina lysis panel , auto Unknown Analyte Occ Not Available [facility] [address] [place], [address], 08/05/2018 10:10:59 08/06/19 19 08/05/2018 urina lysis panel , auto Unknown Analyte 6 - 10 Not Available [facility] [address] [facility], [place], [address], 08/05/2018 10:10:59 08/06/19 19 08/05/2018 urina lysis panel , auto Unknown Analyte 0 - 5 Not Available [facility]rology [facility] [address] [facility], [place], [address], 08/05/2018 10:10:59 08/06/19 19 08/05/2018 urina lysis panel , auto Unknown Analyte None seen Not Available Cu[facility]Lc Urolo gy [facility] [address] [place], [address], 08/05/2018 10:10:59 01/13/2001/13/2020 cultu re, urine results [facility] e: CCUR Colle cted: 01/12 09:41 Site: Recei wendy : 01/12 19:56 URINE CULTU RE FINAL 01/14 11:40 01/14 No signi goyo martinez h. Not Available [facility] Laboratory [facility], [place], [address], 01/15/2020 11:40:10 01/13/2001/13/2020 urina lysis micro scopi c panel , autom ated Unknown Analyte Clean Catch Not Available Cu/Lc Urolo gy [facility] [address] [place], [address], 01/13/2020 09:27:58 01/13/2001/13/2020 urina lysis micro scopi c panel , autom ated Unknown Analyte Yellow Not Available [facility]c Urology [facility] [address] [place], [address], 01/13/2020 09:27:58 01/13/2001/13/2020 urina lysis micro scopi c panel , autom ated Unknown Analyte Clear Not Available [facility] [address] [facility], [place], [address], 01/13/2020 09:27:58 01/13/2001/13/2020 urina lysis micro scopi c panel , autom ated Unknown Analyte 1.015 Not Available [facility] [address] [facility], [place], [address], 01/13/2020 09:27:58 01/13/2001/13/2020 urina lysis micro scopi c panel , autom ated Unknown Analyte 6.0 Not Available [facility] Urology [facility] [address] [facility], [place], [address], 01/13/2020 09:27:58 01/13/2001/13/2020 urina lysis micro scopi c panel , autom ated Unknown Analyte Negati ve Not Available Cu[facility]Lc Urolo [facility] [address] [facility], [place], [address], 01/13/2020 09:27:58 01/13/2001/13/2020 urina lysis micro scopi c panel , autom ated Unknown Analyte Negati ve Not Available Cu/Lc Urolo gy [facility] [address] [facility], [place], [address], 01/13/2020 09:27:58 01/13/2001/13/2020 urina lysis micro scopi c panel , autom ated Unknown Analyte Negati ve Not Available Cu[facility]Lc Urol[facility] [address] [facility], [place], [address], 01/13/2020 09:27:58 01/13/2001/13/2020 urina lysis micro scopi c panel , autom ated Unknown Analyte Normal Not Available [facility] [address] [place], [address], 01/13/2020 09:27:58 01/13/2001/13/2020 urina lysis micro scopi c panel , autom ated Unknown Analyte Negati ve Not Available [facility]Lc Urol[facility] [address] [facility], [place], [address], 01/13/2020 09:27:58 01/13/2001/13/2020 urina lysis micro scopi c panel , autom ated Unknown Analyte Normal Not Available [facility] [address] [facility], [place], [address], 01/13/2020 09:27:58 01/13/2001/13/2020 urina lysis micro scopi c panel , autom ated Unknown Analyte Negati ve Not Available Cu[facility]Lc Urol[facility] [address] [facility], [place], [address], 01/13/2020 09:27:58 01/13/2001/13/2020 urina lysis micro scopi c panel , autom ated Unknown Analyte 250 Bj/ul Not Available Cu[facility]Lc Urolo [facility] [address] [facility], [place], [address], 01/13/2020 09:27:58 01/13/2001/13/2020 urina lysis micro scopi c panel , autom ated Unknown Analyte AUTO Not Available [facility] Urology [address] [facility], [place], [address], 01/13/2020 09:27:58 01/13/2001/13/2020 urina lysis micro scopi c panel , autom ated Unknown Analyte 5-10 Not Available [facility]Lc Urology [address] [facility], [place], [address], 01/13/2020 09:27:58 01/13/2001/13/2020 urina lysis micro scopi c panel , autom ated Unknown Analyte None Seen Not Available Cu[facility]Lc Urolo [facility] [address] [facility], [place], [address], 01/13/2020 09:27:58 01/13/2001/13/2020 urina lysis micro scopi c panel , autom ated Unknown Analyte None Seen Not Available Cu[facility]Lc Urolo [facility] [address] [facility], [place], [address], 01/13/2020 09:27:58 01/13/2001/13/2020 urina lysis micro scopi c panel , autom ated Unknown Analyte 1+ Not Available [facility] [address] [facility], [place], [address], 01/13/2020 09:27:58 01/03/2001/02/2022 urina lysis panel , auto Unknown Analyte Clean Catch Not Available Cu/Lc Urolo [facility] [address] [facility], [place], [address], 01/02/2022 13:51:51 01/03/2001/02/2022 urina lysis panel , auto Unknown Analyte Yellow Not Available [facility] [address] [facility], [place], [address], 01/02/2022 13:51:51 01/03/2001/02/2022 urina lysis panel , auto Unknown Analyte Clear Not Available [facility] [address] [facility], [place], [address], 01/02/2022 13:51:51 01/03/2001/02/2022 urina lysis panel , auto Unknown Analyte 1.020 Not Available [facility] [address] [place], [address], 01/02/2022 13:51:51 01/03/2001/02/2022 urina lysis panel , auto Unknown Analyte 6.0 Not Available [facility] [address] [facility], [place], [address], 01/02/2022 13:51:51 01/03/2001/02/2022 urina lysis panel , auto Unknown Analyte 75 Delilah/ul (+) Not Available Cu[facility]Lc Urol[facility] [address] [facility], [place], [address], 01/02/2022 13:51:51 01/03/2001/02/2022 urina lysis panel , auto Unknown Analyte Negati ve Not Available Cu[facility]Lc Urol[facility] [address] [facility], [place], [address], 01/02/2022 13:51:51 01/03/2001/02/2022 urina lysis panel , auto Unknown Analyte Negati ve Not Available Cu[facility]Lc Urol[facility] [address] [facility], [place], [address], 01/02/2022 13:51:51 01/03/2001/02/2022 urina lysis panel , auto Unknown Analyte Normal Not Available [facility] [address] [facility], [place], [address], 01/02/2022 13:51:51 01/03/2001/02/2022 urina lysis panel , auto Unknown Analyte Negati ve Not Available [facility]Lc Urol[facility] [address] [facility], [place], [address], 01/02/2022 13:51:51 01/03/2001/02/2022 urina lysis panel , auto Unknown Analyte Normal Not Available [facility] [address] [place], [address], 01/02/2022 13:51:51 01/03/2001/02/2022 urina lysis panel , auto Unknown Analyte Negati ve Not Available [facility]rol[facility] [address] [facility], [place], [address], 01/02/2022 13:51:51 01/03/20 22 01/02/2022 urina lysis panel , auto Unknown Analyte 250 Bj/ul Not Available [facility]Lc Urol[facility] [address] [facility], [place], [address], 01/02/2022 13:51:51 02/15/2002/14/2023 urina lysis panel , auto Unknown Analyte Clean Catch Not Available [facility]Lc Urol[facility] [address] [facility], [place], [address], 02/14/2023 14:02:37 02/15/20 23 02/14/2023 urina lysis panel , auto Unknown Analyte Yellow Not Available [facility] [address] [facility], [place], [address], 02/14/2023 14:02:37 02/15/20 23 02/14/2023 urina lysis panel , auto Unknown Analyte Clear Not Available [facility] [address] [facility], [place], [address], 02/14/2023 14:02:37 02/15/20 23 02/14/2023 urina lysis panel , auto Unknown Analyte 1.010 Not Available [facility] [address] [place], [address], 02/14/2023 14:02:37 02/15/20 23 02/14/2023 urina lysis panel , auto Unknown Analyte 7.0 Not Available [facility] [address] [place], [address], 02/14/2023 14:02:37 02/15/20 23 02/14/2023 urina lysis panel , auto Unknown Analyte Negati ve Not Available [facility]Lc Urol[facility] [address] [facility], [place], [address], 02/14/2023 14:02:37 02/15/20 23 02/14/2023 urina lysis panel , auto Unknown Analyte Negati ve Not Available Cu[facility]Lc Urol[facility] [address] [facility], [place], [address], 02/14/2023 14:02:37 02/15/20 23 02/14/2023 urina lysis panel , auto Unknown Analyte Negati ve Not Available [facility]Lc Urol[facility] [address] [facility], [place], [address], 02/14/2023 14:02:37 02/15/20 23 02/14/2023 urina lysis panel , auto Unknown Analyte Normal Not Available [facility] [address] [facility], [place], [address], 02/14/2023 14:02:37 02/15/20 23 02/14/2023 urina lysis panel , auto Unknown Analyte Negati ve Not Available [facility]Lc Urol[facility] [address] [facility], [place], [address], 02/14/2023 14:02:37 02/15/20 23 02/14/2023 urina lysis panel , auto Unknown Analyte Normal Not Available [facility] [address] [facility], [place], [address], 02/14/2023 14:02:37 02/15/20 23 02/14/2023 urina lysis panel , auto Unknown Analyte Negati ve Not Available [facility]rol[facility] [address] [facility], [place], [address], 02/14/2023 14:02:37 02/15/20 23 02/14/2023 urina lysis panel , auto Unknown Analyte Negati ve Not Available [facility]rol[facility] [address] [facility], [place], [address], 02/14/2023 14:02:37 12/30/19 21 12/29/2020 XR, abdom en, 1 view [facility] [address] [place] [address] Patien t Name: EMILY coleman : [phone] Patijaince t 0 Orderi ng Provid er: GILBERTO S G RAY EXAM DATE: 2020 EXAM: XR CU ABDOME N [facility] CLINIC AL INFORM ATION: Abdomi nal pain. Kidney stones IMAGES PROVID ED: KUB AP radiog raphic images of the abdome n. COMPAR NOLAN: None. FINDIN GS: No abnorm al intest inal gas patter n. No abnorm al calcif icatio ns are seen. No radiog raphic eviden ce of free intrap eriton eal air. IMPRES NOLAN: Normal x-ray abdome n KUB. Interp reted By: Sohan Bennett MD Electr onical ly Signed By: Sohan Bennett MD on 021 2:04 PM [facility] Operating Room Assistant [address] [place] [address], [address], 01/03/2021 12:01:57 01/05/20 21 01/03/2021 US, retro perit oneum , limit ed [facility] [address] [place] [address] Patien t Name: EMILY coleman : 983 Yadi t 0 Orderi ng Provid er: GILBERTO S G RAY EXAM DATE: 2020 EXAM: US KIDNEY BILAT WO BLADDE R CLINIC AL INFORM ATION: Renal insuff icienc y. Right flank pain. TECHNI QUE: Multip le sonogr aphic images of both kidney s were obtain ed. COMPAR NOLAN: None. FINDIN GS: RIGHT KIDNEY : Length = 9.6 cm. Right kidney is mildly atroph ic. No hydron ephros is is presen t. There is a 6 mm nonobs tructi ng stone in the right kidney . LEFT KIDNEY : Length = 12.3 cm. No hydron ephros is, mass or stone. There is a 3 mm nonobs tructi ng stone in the left kidney . IMPRES NOLAN: 1. Mild right renal atroph y. 2. No eviden ce of urinar y tract obstru ction. 3. Nonobs tructi ng bilate ral renal stones . Interp reted By: Magda Martin MD Electr onical ly Signed By: Magda Martin MD on 021 7:[address] Rad[address], [address], 01/04/2021 10:59:01 02/13/20 23 02/12/2023 US, retro perit oneum , limit ed [address] [address] Patien t Name: EMILY HARP Patien t : 983 Patien t 0 Orderi ng Provid er: GILBERTO S RAY EXAM DATE: 2022 EXAM: US KIDNEY BILAT WO BLADDE R CLINIC AL INFORM ATION: Renal insuff icienc y. TECHNI QUE: Multip le sonogr aphic images of both kidney s were obtain ed. COMPAR NOLAN: None. FINDIN GS: RIGHT KIDNEY : Length = 9.7 cm. No hydron ephros is, mass or stone. LEFT KIDNEY : Length = 13.1 cm. No hydron ephros is, mass or stone. IMPRES NOLAN: Mild atroph y of the right kidney . No other signif icant abnorm ality. Interp reted By: Magda Martin MD Electr onical ly Signed By: Magda Martin MD on 2022 11:[address] Radiology [facility] [address] [place], [address], 02/14/2023 13:56:08 Result Notes Documentation Provider Name and Address Organization Details Recorded Time Xr, Abdomen, 1 View : [facility] [address] [place] [address] Patient Name: KAY HARP Patient : [id number] Patient Ordering Provider: AWAIS LIRA EXAM DATE: 12/29/2020 EXAM: XR CU ABDOMEN KUB CLINICAL INFORMATION: Abdominal pain. Kidney stones IMAGES PROVIDED: KUB AP radiographic images of the abdomen. COMPARISON: None. FINDINGS: No abnormal intestinal gas pattern. No abnormal calcifications are seen. No radiographic evidence of free intraperitoneal air. IMPRESSION: Normal x-ray abdomen KUB. Interpreted By: Sohan Bennett MD Radha Burnette [facility] 01/03/2021 12:01:57 Problems No Known Problems Procedures Surgical History Date Name Laterality Status Provider Name and Address Organization Details Recorded Time 7 Catheter Insertion; In & Out completed [facility] 01/02/2017 09:31:17 7 Catheter Insertion; In & Out completed [facility] 10/03/2016 10:39:11 Kidney Surgery completed Radhabrianne Burnette [facility] 04/10/2016 15:48:53 Imaging Results None recorded. Procedure Notes None recorded. Medical Equipment None Reported. Allergies No known drug allergies Medications Name Sig Start Date Stop Date Status Note LastModified by Organization Details LastModified Time Ortho Tri-Cycle n (28) 0.18 mg(7)/0.2 15mg(7)/0 .25 mg(7)-0.0 35 mg tablet Daily 04/10 completed Instruct ions: Quantity 1month;F requency : daily;Me dication Descript ion: ethinyl estradio l-norges timate; Dosage:1 ; Route:or al; refills: 0; Quantity :1 tablet Not Available Not Available Not Available Mydayis 25 mg capsule extended release 24 hr Take 1 capsule every day by oral route. 01/02 completed Not Available Not Available Not Available Vitals Date Recorded Body height Body mass index (BMI) Body weight Systolic And Diastolic Provider Name and Address Organization Details Last Updated DateTime 08/05/2018 162.56 cm 25.9 kg/m2 81262.45 g 135/80 mm[Hg] Isabel Guardado [facility] 08/05/2018 10:04:21 Date Recorded Body height Body mass index (BMI) Body weight Provider Name and Address Organization Details Last Updated DateTime 12/29/2020 162.56 cm 25.9 kg/m2 83415.45 g Radha Burnette [facility] 12/29/2020 13:42:02 Date Recorded Body weight Provider Name an d Address Organization Details Last Updated DateTime 01/02/2022 16486.45 g Neeta Trentle [facility] 01/02/2022 13:45:04 Date Recorded Body height Body mass index (BMI) Body weight Body temperature Provider Name and Address Organization Details Last Updated DateTime 01/13/2020 162.56 cm 25.9 kg/m2 05440.45 g 97 [degF] Radha Burnette [facility] 01/13/2020 09:16:54 Date Recorded Body weight Body mass index (BMI) Body height Provider Name and Address Organization Details Last Updated DateTime 02/14/2023 66333.45 g 25.9 kg/m2 162.56 cm Radha Burnette [facility] 02/14/2023 13:48:57 Social History Question Answer Notes LastModified by Organizat ion Details LastModified Time Tobacco Smoking Status Current Every Day Smoker Radha Burnette [facility] 04/10/2016 15:47:41 Marital Status Informatio n not available 04/10/2016 What Was The Date Of Your Most Recent Tobacco Screening? 08/05/2018 Information n ot available 05/19/2019 How Much Tobacco Do You Smoke? 0.5 PPD hstrang Information not available 08/05/2018 Sex: Unknown Functional Status Question Answer Note LastModified by Organizat ion Details LastModified Time What is your level of alcohol consumption? 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 Family History Relationship Description Onset Age of this Age Resolved Age Notes LastModified by Organization Details LastModified Time Father No current problems or disability Not available 04/10 15:47:30 Mother No current problems or disability Not available 04/10 15:47:30 Medical History Condition Response Kidney Stones Y Urinary Problems Y Gynecological HistoryNo gynecological history recorded. Obstetrics History GPAL:G 2 P 2 0 0 0 Type Value Full Term 2 Total 2 Past Encounters Encounter ID Performer Location Encounter Start Date Encounter Closed Date Diagnosis/Indication Diagnosis SNOMED-CT Code Diagnosis ICD10 Code Diagnosis IMO Codes Diagnosis Note [id number] AWAIS LIRA MD UROLOGY [place] [address] 04/10/2016 14:26:21 04/11/2016 08:32:42 Chronic cystitis 19513218 N30.20 [id number] AWAIS LIRA MD UROLOGY [place] [address] 08/01/2016 12:38:28 08/01/2016 14:12:23 Recurrent urinary tract infection 507661596 N39.0 Hx of Vesicoureteric reflux 19 4260881 N13.9 Hx of [id number] AWAIS LIRA MD UROLOGY [place] [address] 10/03/2016 10:20:58 10/05/2016 10:19:16 Recurrent urinary tract infection 361372562 N39.0 Hx of Vesicoureteric reflux 19 5340480 N13.9 Hx of [id number] AWAIS LIRA MD UROLOGY [place] [address] 01/02/2017 09:06:07 01/02/2017 10:51:09 Recurrent urinary tract infection 265476452 N39.0 Hx of Normal 6485814 2 Z34.93 [id number] AWAIS LIRA MD UROLOGY [place] [address] 12/31/2017 14:15:09 01/11/2018 09:11:06 Right flank pain 591652870 R10.9 Recurrent urinary tract infection 288802403 N39.0 Hx of [id number] AWAIS LIRA MD UROLOGY [facility] [address] [place] [address] 08/05/2018 09:04:06 08/06/2018 08:57:28 Right flank pain 925877864 R10.9 Recurrent urinary tract infection 529889911 N39.0 Hx of Chronic cystitis 3781550 2 N30.20 Vesicoureteric reflux 19 9748832 N13.9 Hx of - poorly functionin g R kidney Microscopic hematuria 19 8732071 R31.21 [id number] AWAIS LIRA MD UROLOGY [facility] [address] [place] [address] 01/13/2020 08:50:56 01/13/2020 09:45:09 Right flank pain 998942169 R10.9 Recurrent urinary tract infection 536120216 N39.0 Hx of Chronic cystitis 5374752 2 N30.20 Vesicoureteric reflux 19 6495316 N13.9 Hx of - poorly functionin g R kidney Microscopic hematuria 19 4528107 R31.21 [id number] AWAIS LIRA MD UROLOGY [facility] [address] [place] [address] 12/29/2020 13:22:00 12/29/2020 14:47:38 Kidney stone 03469051 N20.0 History of - negative CT scan 12/19 Right flank pain 5671818 09 R10.9 Recurrent urinary tract infection 771045448 N39.0 Hx of Chronic cystitis 5731036 2 N30.20 Vesicoureteric reflux 19 0609269 N13.9 Hx of - poorly functionin g R kidney Microscopic hematuria 19 1506024 R31.21 History of [id number] AWAIS LIRA MD UROLOGY [facility] [address] [place] [address] 01/02/2022 13:36:49 01/02/2022 14:24:33 Kidney stone 53938776 N20.0 History of - negative CT scan 12/19 Right flank pain 3557922 09 R10.9 Recurrent urinary tract infection 636844358 N39.0 Hx of Chronic cystitis 8474863 2 N30.20 Vesicoureteric reflux 19 1367726 N13.9 Hx of - poorly functionin g R kidney Microscopic hematuria 19 5749080 R31.21 History of [id number] [facility]WA[facility] [address] [facility] [place] [address] 02/14/2023 12:27:10 02/14/2023 14:03:42 Kidney stone 17176910 N20.0 History of - negative CT scan 12/19 Right flank pain 4327722 09 R10.9 Recurrent urinary tract infection 283212720 N39.0 Hx of Chronic cystitis 0733231 2 N30.20 Vesicoureteric reflux 19 0897163 N13.9 Hx of - poorly functionin g R kidney Microscopic hematuria 19 2318544 R31.21 History of Health Concerns Section Related Observation LastModified by Organization Detai ls LastModified Time None Recorded Concern Status LastModified by Organization Details LastModified Time None Recorded Advance Directives Directive None Recorded Payers Insurance Date Sequence Insurance Name Policy Number Policy Ku Covered Member ID Ku Member ID Guarantor Name 02/24/2020 1 [facility] ([place] [id number] Zackery Patten Ravi [id number] Kay King [place] 04/10/2016 1 [facility] [id number] Zackery Patten [place] [id number] Kay King Ravi 02/24/2020 1 [facility] [id number] Zackery Patten Green [id number] Kay King [place] 12/18/2024 1 [employer] [id number] Zackery Harp [id number] Kay Harp Notes Date Note Type Note Provider Name and Address Organization Details Recorded Time 08/05/2018 text/html 37 yo female returns after 6 months for f/u right flank pain, h/o recurrent UTI. Right flank pain is fairly mild but has been nearly constant since her last visit in December. She has identified no aggravating factors but did have transient improvement with warm soaks with epsom salts recently. She also reports bright red blood on the toilet tissue after urination. There are small clots on occasion. This is visible for a couple days with each episode and it occurs rather frequently. She has suspected UTI a couple of times in the interim but none has been documented. She has had no fever or chills and no nausea or vomiting. She occasionally has frequency and dysuria. A renal US in December showed a 5 mm nonobstructing stone in the right kidney. Creatinine 0.84 (). She had a normal pelvic exam in December as well. AWAIS LIRA MD [address] [place] [address] [place], [address], [facility] 08/05/2018 10:40:06 01/13/2020 text/html 39 yo female here today for follow up with h/o recurrent UTI and flank pain. She is here today with complaints of right side flank pain/discomfort and urinary frequency. She was seen in at [facility] 12/28/[address] scan which showed no urologic issues. She was referred to GI for workup. She denies any gross hematuria or dysuria. She has no other complaints or concerns today. AWAIS LIRA MD [address] [place] [address], [phone] 01/13/2020 09:41:36 12/29/2020 text/html 39 yo female here today for follow up with h/o recurrent UTI and flank pain. She is here today with complaints of right side flank pain/discomfort. She has no other complaints or concerns today. Her pain is very much affected by position and movement in both relief and provocation. AWAIS LIRA MD [address] [place] [address], [phone], [facility] 12/29/2020 14:20:23 01/02/2022 text/html 41 yo female here today for follow up with h/o flank pain on both sides. She has a history of known reflux disease with right renal atrophy. She is now doing very well and pain is minimal to absent. She has no other complaints or concerns today. AWAIS LIRA MD [address] [place] [address], [phone], [facility] 01/04/2022 18:46:51 02/14/2023 text/html 42 yo female here today for follow up with renal stone and history of vesicoureteral reflux. She has a history of known reflux disease with right renal atrophy. She is now doing very well and pain is minimal to absent. She has no other complaints or concerns today. She had a single uncomplicated UTI over the past year resolved well with antibiotics. She is no longer running any suppressive therapy. She says PCP does regular blood work and she has not been told renal function is compromised.Renal ultrasound just done reveals mild right renal atrophy which is unchanged from study 2 years ago and with no hydronephrosis or other abnormalities noted. KUB last year showed a 6 mm stone overlying the right kidney. AWAIS LIRA MD [address] [place] [address], [phone], [facility] 02/14/2023 15:16:11 OBGyn Episode No OBEpisode recorded.
[2024-12-27 17:38] LABS: Hematocrit 41.4 % (37.0-47.0); Hemoglobin 14.4 g/dL (12.2-16.2); Immature Granulocytes % 0.3 %; Mean Corpuscular HGB Conc 34.8 g/dL (31.8-35.4); Mean Corpuscular Hemoglobin 30.3 pg (27.0-31.2); Mean Corpuscular Volume 87.2 fl (81-99); Nucleated Red Blood Cells % 0 %; Platelet Count 413 K/mm3 (142-424); Red Blood Count 4.75 M/mm3 (4.20-5.40); Red Cell Distribution Width-SD 39.7 fL; White Blood Count 11.3 K/mm3 (4.8-10.8)
[2024-12-27 17:51] LABS: Alanine Aminotransferase 15 U/L (12-78); Albumin Level 4.1 g/dl (3.5-5.0); Albumin/Globulin Ratio 1.4 (1.1-1.8); Alkaline Phosphatase 78 U/L (38-126); Anion Gap 9.6 mEq/L (5-15); Aspartate Amino Transferase 27 U/L (14-36); Bilirubin,Total 0.4 mg/dl (0.2-1.3); Blood Urea Nitrogen 9 mg/dl (7-17); Calcium 8.9 mg/dl (8.4-10.2); Carbon Dioxide 30 mmol/L (22.0-30.0); Chloride 101 mmol/L (98-107); Creatinine Clearance Estimated 128 mL/min (50-200); Creatinine,Serum 0.80 mg/dl (0.52-1.04); Estimated Glomerular Filt Rate 79 ml/min (>60); GFR (African American) 95 ML/MIN (>60); Globulin 3.0 g/dL (1.3-3.2); Glucose 97 mg/dl (74-100); Magnesium 1.9 mg/dl (1.6-2.3); Potassium 3.6 mmoL/L (3.5-5.1); Sodium 137 mmol/L (136-145); Total Protein,Serum 7.1 g/dl (6.3-8.2)
[2024-12-27 18:05] LABS: Troponin I < 0.01 ng/ml (0.00-0.034)
--- NOTE | 2024-12-27 18:08 | CT_ITS ---
PROCEDURE INFORMATION: Exam: CT Orbits Without Contrast Exam date and time: 12/27/2024 7:14 PM Age: 44 years old Clinical indication: Other: Optic nerve edema TECHNIQUE: Imaging protocol: Computed tomography of the orbits without contrast. Radiation optimization: All CT scans at this facility use at least one of these dose optimization techniques: automated exposure control; mA and/or kV adjustment per patient size (includes targeted exams where dose is matched to clinical indication); or iterative reconstruction. COMPARISON: CT HEAD/BRAIN WO CON 12/27/2024 7:12 PM FINDINGS: Paranasal sinuses: Paranasal sinuses all appear well-aerated Orbital cavities: No orbital edema or abnormal fat stranding in the orbital fat demonstrated. No intraconal masses Bones/joints: No acute fracture. Soft tissues: No significant facial soft tissue swelling. IMPRESSION: No acute findings.
--- NOTE | 2024-12-27 18:10 | CT_ITS ---
PROCEDURE INFORMATION: Exam: CTA Head With Contrast, Venography Exam date and time: 12/27/2024 7:17 PM Age: 44 years old Clinical indication: Headache; Additional info: Headache, tingling TECHNIQUE: Imaging protocol: Computed tomography angiography of the head with contrast. Exam focused on the veins. 3D rendering (Not supervised by radiologist): MIP and/or 3D reconstructed images were created by the technologist. Radiation optimization: All CT scans at this facility use at least one of these dose optimization techniques: automated exposure control; mA and/or kV adjustment per patient size (includes targeted exams where dose is matched to clinical indication); or iterative reconstruction. Contrast material: ISO 370; Contrast volume: 80 ml; Contrast route: INTRAVENOUS (IV); COMPARISON: CT HEAD/BRAIN WO CON 12/27/2024 7:12 PM FINDINGS: Superior sagittal sinus: Patent. Straight sinus: Patent. Transverse sinuses: Patent. Sigmoid sinuses: Patent. Internal jugular veins: Limited visualized internal jugular veins are patent. Brain: No definite mass, mass effect, or midline shift. Cerebral ventricles: No ventriculomegaly. Soft tissues: Unremarkable. IMPRESSION: No venous thrombosis.
--- NOTE | 2024-12-27 18:26 | ED_ITS ---
<Statement entered by Ela Ocampo DO - 12/29/24 03:11> I was consulted by the CLAUDIO, and we discussed the complexity of problems being addressed. I approve the treatment and management plan for this patient's care in the emergency department, thus performing a substantial portion of the medical decision making. Ela Ocampo DO Discharge Plan Disposition Patient Disposition: Xfer Short-Term Hosp Prescriptions Prescriptions: No Action cyclobenzaprine 10 mg tablet 10 mg PO HS Qty: 30 2RF hydrochlorothiazide 12.5 mg tablet See Rx Instructions .ROUTE .COMPLEX Qty: 90 0RF Dose Instruction: TAKE 1 TABLET BY MOUTH EVERY DAY Rx Instructions: TAKE 1 TABLET BY MOUTH EVERY DAY Zepbound 2.5 mg/0.5 mL pen injector 2.5 mg SQ WEEKLY Qty: 2.5 0RF Rx Instructions: for 4 weeks dextroamphetamine-amphetamine [Adderall] 30 mg tablet 30 mg PO BID 30 Days Qty: 60 0RF Rx Instructions: administer doses at least 4-6 hours apart dextroamphetamine-amphetamine [Adderall] 30 mg tablet 30 mg PO BID Qty: 60 0RF Rx Instructions: administer doses at least 4-6 hours apart fluticasone propionate 50 mcg/actuation spray,suspension See Rx Instructions .ROUTE .COMPLEX Qty: 48 1RF Dose Instruction: SPRAY 1 SPRAY INTO EACH NOSTRIL TWICE A DAY FOR ALLERGIES Rx Instructions: SPRAY 1 SPRAY INTO EACH NOSTRIL TWICE A DAY FOR ALLERGIES amitriptyline 50 mg tablet See Rx Instructions .ROUTE .COMPLEX Qty: 30 0RF Dose Instruction: TAKE 1 TABLET BY MOUTH AT BEDTIME NIGHTLY Rx Instructions: TAKE 1 TABLET BY MOUTH AT BEDTIME NIGHTLY Referrals Follow up/Referrals: Lamar Moffett PA [Primary Care Provider, Medical] - See instructions Clinical Impressions Clinical Impression: Edema of optic nerve Print Language Print Language: Monegasque Discharge ED Provider: Ela Ocampo General Adult [facility] General Chief complaint: PAIN Stated complaint: numbness left leg, swelling behind both eyes, h/a Time Seen by Provider: 12/27/24 17:13 Mode of Arrival: Ambulatory Source of Information: Patient Description of Symptoms (Recalled from ER Triage Doc. by RN): pt presents to ED with c/o tingiling in bilateral feet, worse with the left foot. pt reports she had a recent eye doctor visit and was told she had fluid and swelling on her optic nerve. pt was told to come to ED for eval if numbness and tingiling occured. History of Present Illness HPI narrative: Patient presents complaining of bilateral lower extremity tingling for several days. She reports that it has been intermittent, worse on the left and has had multiple episodes today. She reports recently she had an eye exam that showed optic nerve edema. She was scheduled to see neurology, however cannot be seen until April. She has had several months of intermittent headaches. Denies any focal weakness, confusion or altered mental status. MD complaint: tingling Onset (ago): day(s) Location: lower extremity Radiation: non-radiation Severity: mild Consistency: intermittent Relieving factors: none Exacerbating factors: none Associated symptoms: headaches Treatments prior to arrival: none Related Data Previous Rx's ?Medication ?Instructions ?Recorded fluticasone propionate 50 See Rx Instructions .Route 0 05/08/23 mcg/actuation nasal .COMPLEX #48 mL spray,suspension cyclobenzaprine 10 mg tablet 10 mg PO HS #30 tabs 06/22 hydrochlorothiazide 12.5 mg tablet See Rx Instructions .Route 09/02/23 .COMPLEX #90 tabs tirzepatide (weight loss) 2.5 2.5 mg (0.5 mL) SQ WEEKL Y #2.5 mL 11/25/23 mg/0.5 mL subcutaneous pen injector (Zepbound) dextroamphetamine-amphetamine 30 30 mg PO BID #60 tabs 11/26/23 mg tablet (Adderall) dextroamphetamine-amphetamine 30 30 mg PO BID 30 days #60 tabs 11/26/23 mg tablet (Adderall) amitriptyline 50 mg tablet See Rx Instructions .Route 12/19/23 .COMPLEX #30 tabs Allergies Allergy/AdvReac Type Severity Reaction Status Date / Time No Known Allergies Allergy Verified 11/25/23 13:02 [facility] Disclaimer: The information contained in this section may have been updated after the patient was seen, as this information can be updated by other users. Medical History Function kidney decreased Tobacco use Abnormal uterine bleeding Menorrhagia Anxiety Attention Deficit Hyperactivity Disorder (ADHD) Surgical History S/P dilation and curettage History of hysteroscopy History of endometrial ablation 01/15/22 History of kidney surgery Family History Other No significant family history Social History Smoking Status: Current every day smoker tobacco type: cigarettes packs per day: 1 second hand exposure: Yes alcohol intake: never substance use type: denies use current occupational status: employed Travel in the last 8 weeks?: Inside the [place] Have you lived/traveled outside [place] in past 30 days?: No Contact w/someone who lives/traveled outside [place] past 30 days?: No Exposure to someone with infectious disease in past 14 days?: No Do you have a fever (greater than 100.4 F or 38 C)?: No Have you tested positive for COVID-19?: No Exposed to someone with COVID-19 in past 14 days?: No Do you have a sore throat?: No Do you have a cough?: No Do you have any weakness?: No Do you have any diarrhea?: No Are you experiencing any unusual bleeding?: No Do you have any muscle aches/pain?: No Do you have any abdominal pain?: No Are you experiencing loss of taste or smell?: No Other Medical History Have you received the Flu Vaccine for this season: Yes Have you received the Pneumonia Vaccine: No ROS Obtained: Yes Systems reviewed as appropriate & no additional complaints except as documented Physical Exam General General appearance: alert and in no apparent distress Head Head exam: atraumatic and normocephalic Eye Eye exam: Present normal appearance and EOMI Chest Chest inspection: Present symmetric chest wall rise Respiratory Respiratory exam: Present normal lung sounds bilaterally; Absent wheezes or stridor Cardiovascular Cardiovascular exam: Present regular rate and normal rhythm; Absent systolic murmur Extremities Exam Extremities exam: Present full ROM Neurological Exam Neurological exam: Present alert, oriented X3 and CN II-XII intact; Absent motor sensory deficit Psychiatric Psychiatric exam: Present normal affect and normal mood Skin Skin exam: Present warm, dry and intact Medical Decision Making Medical Records Screening: Per USPSTF and CDC recommendations, given the prevalence of disease in our region, it is our hospital?s policy to screen for HIV and viral Hepatitis for all patients aged 18 and over and those with ongoing risk factors. [place] Inquiry Pt receiving controlled substance: No Vital Signs: 12/27/24 17:19 12/27/24 17:30 12/27/24 18:00 Temperature 98.5 F Temperature Source Oral Pulse Rate 88 85 Pulse Rate [Left Radial] 97 H Respiratory Rate 16 18 24 Blood Pressure 128/88 139/94 H Blood Pressure [Right Arm] 131/94 H Blood Pressure Mean Blood Pressure Mean [Right Arm] 106 02 Sat by Pulse Oximetry 99 96 99 Oxygen Delivery Method Room Air Room Air Room Air 12/27/24 19:00 12/27/24 19:15 12/27/24 19:30 Temperature Temperature Source Pulse Rate 81 80 79 Pulse Rate [Left Radial] Respiratory Rate 18 22 17 Blood Pressure 149/94 H 149/94 H 121/77 Blood Pressure [Right Arm] Blood Pressure Mean 105 91 Blood Pressure Mean [Right Arm] 02 Sat by Pulse Oximetry 98 98 100 Oxygen Delivery Method 12/27/24 20:00 12/27/24 20:26 12/27/24 20:30 Temperature Temperature Source Pulse Rate 77 71 81 Pulse Rate [Left Radial] Respiratory Rate 14 14 18 Blood Pressure 117/74 117/74 124/85 Blood Pressure [Right Arm] Blood Pressure Mean 83 98 Blood Pressure Mean [Right Arm] 02 Sat by Pulse Oximetry 98 98 98 Oxygen Delivery Method Room Air 12/27/24 21:00 Temperature Temperature Source Pulse Rate 75 Pulse Rate [Left Radial] Respiratory Rate 18 Blood Pressure 116/79 Blood Pressure [Right Arm] Blood Pressure Mean 97 Blood Pressure Mean [Right Arm] 02 Sat by Pulse Oximetry 97 Oxygen Delivery Method Lab Data Lab Results 12/27/24 17:15: WBC 11.3 H, RBC 4.75, Hgb 14.4, Hct 41.4, MCV 87.2, MCH 30.3, MCHC 34.8, RDW 12.3, Plt Count 413, MPV 8.9, Neut % (Auto) 46.7, Lymph % (Auto) 43.0, [place] % (Auto) 6.8, Eos % (Auto) 1.9, Baso % (Auto) 1.3, Neut # (Auto) 5.3, Lymph # (Auto) 4.9 H, [place] # (Auto) 0.8, Eos # (Auto) 0.2, Baso # (Auto) 0.2, Sodium 137, Potassium 3.6, Chloride 101, Carbon Dioxide 30, Anion Gap 9.6, BUN 9, Creatinine 0.80, Estimated Creat Clear 128, Estimated GFR 79, Est GFR ( Amer) 95, Glucose 97, Calcium 8.9, Magnesium 1.9, Total Bilirubin 0.4, AST 27, ALT 15, Alkaline Phosphatase 78, Troponin I < 0.01, Total Protein 7.1, Albumin 4.1, Globulin 3.0, Albumin/Globulin Ratio 1.4, Serum HCG, Qual Negative, HCV Ab PINA w/Rflx PCR Qn Negative, HIV Ag/Ab Combo Qual Negative 12/27/24 20:31: Troponin I < 0.01 12/27/24 17:15 12/27/24 17:15 Orders (Tests/Meds): ED MEDICATIONS Generic Name Dose Route Start Last Admin Trade Name Freq PRN Reason Stop Dose Admin Sodium Chloride 10 ml 12/27/24 17:18 Sodium Chloride 0.9% 10ml Flush Syringe IV 01/26/25 17:17 NEEDED PRN Maintain IV Site Discontinued Medications Generic Name Dose Route Start Last Admin Trade Name Freq PRN Reason Stop Dose Admin Iopamidol 75 ml 12/27/24 19:14 12/27/24 19:19 Iopamidol-370 (76%);100ml Bottle IV 12/27/24 19:15 75 ml ONCE ONE Administration Sodium Chloride 10 ml 12/27/24 19:14 12/27/24 19:19 Sodium Chloride 0.9% 10ml Syr (Rad Only) IV 12/27/24 19:15 10 ml ONCE ONE Administration Sodium Chloride 50 ml 12/27/24 19:18 12/27/24 19:19 0.9 % Sodium Chloride 50 Ml Vial IV 12/27/24 19:19 50 ml ONCE ONE Administration ORDERS Category Date Time Status CT Venogram head Stat Cat Scan 12/27/24 18:[address] head/brain wo con Stat Cat Scan 12/27/24 17:[address] orbit BI wo con Stat Cat Scan 12/27/24 18:08 Completed CBC w/Auto Diff [Complete Blood Count Auto Diff] Stat Lab 12/27/24 17:15 Completed CMP [Comprehensive Metabolic Panel] Stat Lab 12/27/24 17:15 Completed HIV Combo Stat Lab 12/27/24 17:15 Completed Hepatitis C Ab Qual. W/ RFX Stat Lab 12/27/24 17:15 Completed MAG [Magnesium] Stat Lab 12/27/24 17:15 Completed Serum Beta HCG [HCG Qualitative, Serum] Stat Lab 12/27/24 17:15 Completed Trop I [Troponin I] Stat Lab 12/27/24 17:15 Completed Troponin I Q3H Lab 12/27/24 20:31 Completed Troponin I Q3H Lab 12/27/24 23:30 Ordered Medical Decision Narrative: In summary patient is a 44-year-old female who presents the emergency department for evaluation of tingling. Patient is hemodynamically upon arrival, afebrile. Nonfocal neurologic exam. Differential diagnosis includes intracranial mass, hemorrhage, venous thrombosis, electrolyte abnormality. Initial workup will be conducted with labs, CT head, CT orbits, venogram. Imaging remarkable for calcifications in the orbits around the insertion of the optic nerve. Upon repeat evaluation patient is stable. Discussed with Dr VIRGINIA FELIX and Dr. Fontenot at who advised transfer for MRI head and MRI orbits and lumbar puncture. Given this patient is agreeable to this plan and will go POV.. Critical Care Critical Care Time Critical Care Time: No
[2024-12-27 18:35] LABS: HCG Qualitative, Serum Negative (Negative)
[2024-12-27 18:49] LABS: Hepatitis C Ab Qual. W/ RFX NEGATIVE (Negative)
[2024-12-27] MEDS: 0.9 % SODIUM CHLORIDE 50 ML VIAL IV (19:19)
[2024-12-27] MEDS: SODIUM CHLORIDE 0.9% 10ML SYR (RAD ONLY) 10 ML IV (19:19)
[2024-12-27] MEDS: IOPAMIDOL-370 (76%);100ML BOTTLE 75 ML IV (19:19)
[2024-12-27 21:00] LABS: Troponin I < 0.01 ng/ml (0.00-0.034)
--- NOTE | 2024-12-27 21:53 | PC.NURSE ---
Called [facility] for a consult. stated they would call back
--- NOTE | 2024-12-27 22:31 | PC.NURSE ---
Report called to ED, SELENE Tanner
== END 2024-12-27 22:50 | disposition short-term general hospital (02) ==
PROVIDERS: Physician Assistant; Emergency Provider Student in an Organized Health Care Education/Training Program; PCP Physician Assistant
DX: R51.9 Headache, unspecified (principal); H47.10 Unspecified papilledema
CPT/HCPCS: 70450; 70480; 70496; 80053; 83735; 84484; 84703; 85025; 86803; 87389; 93005; 99285; Q9967